=== PATIENT | male | born 1945 | race Caucasian/White ===

== ENCOUNTER → 2016-07-20 | Outpatient (CLI) | payer MEDICARE, OTHER ==
[~2016-07-20] VITALS: Ht 175.3 cm; Wt 72.7 kg
[~2016-07-20] MED LIST: ACET-2321 PO; ASPI-1115 PO; CIPR-280 PO; CYCL-375 PO; DOCU-168 PO; LEVO100T4 PO; MELO15TA12 PO; NORMAL SALINE 1,000 ML IV ONE; OXYC-544 PO
[2016-07-20 11:48] VITALS: Ht 175.3 cm; Wt 72.7 kg
[2016-07-20 12:00] LABS: BASOPHILS % (AUTO) 0.3 % (0-2); HCT - HEMATOCRIT 43.7 % (41-53); HGB - HEMOGLOBIN 15.1 GM/DL (13.5-17.5); LYMPHOCYTES # (AUTO) 0.8 T/MM3 (1-4.8); LYMPHOCYTES % (AUTO) 21.7 % (23-45); MEAN CORPUSCULAR HGB 30.6 UUG (26-34); MEAN CORPUSCULAR HGB CONC(MCHC 34.6 GM/DL (31-37); MEAN CORPUSCULAR VOLUME 88.5 UM3 (80-100); MEAN PLATELET VOLUME 11.4 UM3 (9.4-12.4); MONOCYTES # (AUTO) 0.3 T/MM3 (0-0.8); MONOCYTES % (AUTO) 8.3 % (0-9.0); NEUTROPHILS #(AUTO)-ABSOLUTE 2.4 T/MM3 (1.8-7.7); NEUTROPHILS % (AUTO) 69.7 % (33-66); RED BLOOD COUNT 4.94 M/MM3 (4.50-5.90); WBC - WHITE BLOOD COUNT 3.5 T/MM3 (4.5-11.0)
[2016-07-20 12:11] LABS: ALBUMIN 4.4 G/DL (3.5-5.0); ALBUMIN/GLOBULIN RATIO 1.2 RATIO (1.1-2.2); ALKALINE PHOSPHATASE 90 U/L (38-126); ALT (SGPT) 47 U/L (21-72); ANION GAP 15 MEQ/L (5-15); AST (SGOT) 56 U/L (17-59); BUN/CREATININE RATIO 25 RATIO (6-26); CALCIUM 9.5 MG/DL (8.4-10.2); CHLORIDE 102 MEQ/L (98-107); CO2 - CARBON DIOXIDE 23 MEQ/L (22-30); CREATININE 1.2 MG/DL (0.8-1.5); GLOMERULAR FILTRATION RATE 60; GLUCOSE 121 MG/DL (75-110); POTASSIUM 3.8 MEQ/L (3.6-5); SODIUM 140 MEQ/L (134-144); TOTAL PROTEIN 8.2 G/DL (6.3-8.2)
[2016-07-20 12:15] VITALS: BP 137/74; PULSE 86; RESP 20; TEMP 98.4; O2SAT 98
== END ==
LOC: LAB 11:22
PROVIDERS: ATTEND Nurse Practitioner
DX: E86.0 Dehydration (principal); R19.7 Diarrhea, unspecified; R53.83 Other fatigue; R63.0 Anorexia
CPT/HCPCS: 80053; 85025; 87507; J7030

== ENCOUNTER 2016-10-22 06:54 | Inpatient (IN) ==
[~2016-10-22 06:54] MED LIST changes: -ACET-2321 PO; +ACETAMINOPHEN 500 MG TABLET PO ONE; -ASPI-1115 PO; -CIPR-280 PO; -CYCL-375 PO; +DEXAMETHASONE 4 MG/ML INJECTION IVP ONE; -DOCU-168 PO; +FAMOTIDINE PB 20 MG/50 ML BAG IV ONE; -LEVO100T4 PO; +LIDOCAINE 1% (10mg/ml) 10mL MDV SQ ONE; -MELO15TA12 PO; +MELOXICAM 15 MG TABLET PO ONE; +METOCLOPRAMIDE 10mg/2ml INJECTION IVP ONE; -NORMAL SALINE 1,000 ML IV ONE; +NOZIN NASAL SWAB NAS ONE; +ONDANSETRON 4 MG/2 ML INJECTION IVP ONE; -OXYC-544 PO; +SALINE FLUSH 10ml SYRINGE IVF PRN
[2016-10-22] MEDS ORDERED: METOCLOPRAMIDE 10mg/2ml INJECTION IVP ONE (07:00)
--- NOTE | 2016-10-22 07:15 | History & Physical Update ---
- History and Physical Update Date: 10/22/16 Update: I evaluated this patient and found no changes in the history and clinical exam findings. The treatment plan and recommendations are also unchanged from the previous documentation.
[2016-10-22 07:16] VITALS: BMI 24.1
[2016-10-22] MEDS: LR 1,000 ML IV SCH ×2 (07:54→09:15)
[2016-10-22] MEDS ORDERED: LIDOCAINE 1% (10mg/ml) 2mL INJ PF SDV ID ONE (07:56)
[2016-10-22] MEDS ORDERED: VANCOMYCIN 1,000 MG INJECTION ONE (08:34)
[2016-10-22] MEDS: CEFAZOLIN 1 G INJECTION IVP ONE (08:42)
[2016-10-22] MEDS ORDERED: PROPOFOL 60 ML ONE (08:46)
[2016-10-22] MEDS ORDERED: MIDAZOLAM 2mg/2ml INJECTION ONE (08:47)
[2016-10-22] MEDS: TRANEXAMIC ACID 1,000 MG in NS 100 ML IV ONE ×2 (09:00→10:21)
[2016-10-22] MEDS ORDERED: PROPOFOL 20 ML ONE ×2 (09:39→10:12)
--- NOTE | 2016-10-22 09:48 | Anesthesia Preoperative Report ---
Anesthesia Preoperative Record - Date and Time Date: 10/22/16 Preoperative Diagnosis: M17.11 Rt TKA Proposed Procedure: right total knee arthroplasty Allergies/Adverse Reactions: Allergies Allergy/AdvReac Type Severity Reaction Status Date / Time venom-honey bee Allergy Unknown HIVES Verified 10/22/16 07:53 - Vital Signs Vital Signs: Temperature 98.4 F 10/22/16 07:14 Pulse Rate 62 10/22/16 07:37 Respiratory Rate 13 10/22/16 07:14 Blood Pressure 126/67 10/22/16 07:14 Pulse Oximetry 95 10/22/16 07:14 Oxygen Delivery Method Room Air Height and Weight: Height 5 ft 8.5 in Weight 73.2 kg Body Mass Index 24.1 - Medications Inpatient Medications: Current Medications Epinephrine HCl 0.25 mg/Bupivacaine HCl 30 ml/Morphine Sulfate 15 mg/Ketorolac Tromethamine 60 mg/Sodium Chloride 65.25 mls @ 1 mls/hr OPSITE INTRAOP ONE PRN Reason: Protocol Stop: 10/25/16 01:14 Lactated Ringer's (Lactated Ringers) 1,000 mls @ 50 mls/hr IV .Q20H GEETHA Last Admin: 10/22/16 09:15 Dose: 50 mls/hr Sodium Chloride (Iv Flush) 10 - 80 ml IVF PRN PRN PRN Reason: [place] Home Medications: Home Medications Medication Instructions Recorded Confirmed Type Levothyroxine Sodium [Synthroid] 1 tab PO ACB #0 tab 06/29/14 10/22/16 History Acetaminophen [Tylenol] 650 mg PO QID PRN 09/17/16 10/22/16 History Is Patient on Beta Marion?: No - Medical History Respiratory: DENIES: Asthma, Sleep Apnea Cardiovascular: DENIES: Angina, Coronary Artery Disease, Hypertension Gastrointestional: DENIES: Gastroesophageal Reflux Disease Renal/Endocrine: Reports: Diabetes Mellitus Type 2 (diet controlled- no meds), Thyroid Disease (controlled with meds) Other History: DENIES: Anesthesia Reactions - Surgical History HEENT Surgeries: Reports: Tonsillectomy, Other (wisdom teeth) GI Surgery/Treatments: Reports: Hernia Repair (age 3), Colonoscopy Musculoskeletal Surgery/Tx: Reports: Total Knee Replacement (Lt TKA 2014) Anesthesia Reactions: None Hx Family Anesthesia Reaction: No History of Motion Sickness: No - Social History Smoking Status: Never smoker Hx Chewing Tobacco Use: No Second Hand Exposure: No Substance Use Type: does not use - Pertinent Findings Laboratory: CBC and BMP 10/22/16 07:24 BMP 10/22/16 07:24 Sodium 143 Potassium 4.1 Chloride 107 Carbon Dioxide 26 BUN 18.0 Creatinine 0.8 Glucose 99 Calcium 9.8 EKG Rhythm: Normal Sinus Rhythm - Physical Exam Respiratory Exam: Present: lungs clear Cardiovascular Exam: Present: regular rate and rhythm - Airway Assessment Mallampati Score: II TMD: 3 Fingerbreadths Neck Extension: good Overall Assessment: no airway concerns - ASA ASA Score: 2 - Plan Anesthesia: General TIVA Regional/Trunk Block: Spinal - Discussion Discussion: Discussed risks/options/alternatives of anesthesia and questions answered. Patient consents. Nursing pain assessment noted. Present for Discussion: spouse, family member Attestation Statement: Prior to the delivery of any anesthetic medication, I examined the patient, developed the plan, obtained the patient's consent and discussed the risk and benefits of the procedure with the patient/guardian. - Additional Information Seen by Anesthesia: Yes
[2016-10-22] MEDS ORDERED: EPHEDRINE 50mg/ml INJECTION ONE (09:54)
[2016-10-22] MEDS ORDERED: SALINE FLUSH 10ml SYRINGE ONE (09:54)
[2016-10-22] MEDS: EPINEPHrine 0.25 MG, BUPIVACAINE 0.25% PF 30 ML, MORPHINE SULFATE 15 MG, KETOROLAC INJ ... OPSITE ONE (10:05)
[2016-10-22] MEDS ORDERED: ROPIVACAINE 0.5% (5mg/ml) 30ml INJ ONE (10:10)
--- NOTE | 2016-10-22 10:14 | Operative Note ---
- Procedure Date of Admission: 10/22/16 Side: right Preoperative Diagnosis: knee primary DJD Postoperative Diagnosis: Same as preoperative diagnosis. Operation: total knee arthroplasty Surgeon: Gege Hernandez MD [employer] Counter Assistant: Marco Antonio Wood Complications: None. Regional/Trunk Block: Spinal Peripheral Nerve Block: Saphenous-Right Estimated Blood Loss: See Anesthesia Record. Fluids: Please see Anesthesia Record. Description of Procedure: Mr. Brown and the right knee were identified and marked in the preoperative holding area. He was brought back to the operating suite and placed supine on the operating table. Spinal anesthetic was administered. The operative lower extremity was prepped and draped in a sterile fashion. Timeout was performed. He had a fixed varus deformity. An anterior midline incision followed by medial parapatellar arthrotomy was performed. The tourniquet was not used until cementing. Hemostasis was obtained with electrocautery. The patella was resurfaced to a size 35. A distal femoral osteotomy was then performed in 5 of valgus using intramedullary guide. The femur was sized at a 5 and rotation set using the epicondylar axis. Distal femoral cuts were performed with a 4-in-1 cutting block. A proximal tibial cut was then made perpendicular to its long axis using an extramedullary guide. A large medial release was performed. At this point remaining meniscus and osteophytes were removed and joint cocktail was injected throughout soft tissue. Trial components were placed with a 9 mm spacer. This allowed for full extension and flexion and the patella tracked well. The leg was then exsanguinated and the tourniquet inflated to 250 mmHg. The tibia was then stamped at a size 5 at the proper rotation. The bone was then prepared for cementing and [place] [employer] components were cemented into place and allowed to cure in extension. The tourniquet was then let down and hemostasis obtained with electrocautery. Betadine solution was used during the curing period for 3 minutes. 1 g of vancomycin powder was placed into the joint before the capsulotomy was repaired with #1 Vicryl. I then left my transport assistant close the subcutaneous tissue and skin with 2-0 Vicryl and Monocryl. Dermabond was used on the skin. The drapes were then removed and she was taken to recovery room under the care of anesthesia.
--- NOTE | 2016-10-22 11:47 | XRay Report ---
Indication: post op PROCEDURE: XR knee RT 2V: Encounter: Initial Comparison: September 16, 2016 Findings: Postoperative changes of right total knee replacement are seen. There is expected postoperative subcutaneous gas. No evidence of hardware failure or acute fracture. No retained radiopaque surgical instruments or sponges. Overlying material causing artifact. Impression: New right total knee prosthesis without evidence of immediate complication. .
[2016-10-22] MEDS ORDERED: NAPROXEN 220 MG TABLET PO PRN (11:50)
[2016-10-22] MEDS ORDERED: DiphenhydrAMINE 25 MG CAPSULE PO PRN (11:50)
[2016-10-22] MEDS ORDERED: DiphenhydrAMINE 50 MG/ML INJECTION IVP PRN (11:50)
[2016-10-22] MEDS ORDERED: LORazepam 1 MG TABLET PO PRN (11:50)
[2016-10-22] MEDS ORDERED: NOZIN NASAL SWAB NAS ONE (11:50)
[2016-10-22] MEDS ORDERED: ONDANSETRON 4 MG/2 ML INJECTION IVP PRN (11:50)
[2016-10-22] MEDS: NS 1,000 ML IV SCH (11:59)
--- NOTE | 2016-10-22 12:05 | Anesthesia Postoperative Note ---
- Date and Time Date: 10/22/16 Time: 11:27 - Status Patient Participated in Evaluation: Patient Participated in Person Vital Signs: Temperature 97 F 10/22/16 11:25 Pulse Rate 68 10/22/16 11:45 Respiratory Rate 16 10/22/16 11:30 Blood Pressure 110/63 10/22/16 11:45 Pulse Oximetry 97 10/22/16 11:45 Oxygen Delivery Method Room Air Respiratory Function: Airway Patent Cardiovascular Function: Regular Pulse EKG Rhythm: Normal Sinus Rhythm Mental Status: Alert and Oriented Pain Intensity: 0 Hydration: IV Infusing Complications During Recover: None Apparent - Follow-Up Instructions Instructions: Per Surgeon
--- NOTE | 2016-10-22 12:11 | Anesthesia Procedure Note ---
Peripheral Nerve Blockade - Procedure Physician: Julio Cesar Hernandez MD Date: 10/22/16 Surgical Procedure: right TKA Discussion: Discussed risks/options/alternatives of anesthesia and questions answered. Patient consents. Nursing pain assessment noted. Block Start: 10:48 Block Stop: 10:52 Blocked Employed: Adductor Canal Indication: Post-Operative Pain Approach: Right Side Confirmed Position: Supine Patient: Consent, Risks/Benefits Discussed, Informed, Post Block Act. Discussed IV Sedation: No (spinal still in effect) Sedation: Sedate w/Meaningful Contact Initial Vital Signs: Pulse Rate 63 10/12/16 11:15 Respiratory Rate 14 10/12/16 11:15 Blood Pressure 93/53 10/12/16 11:15 Pulse Oximetry 95 10/12/16 11:15 Post Vital Signs: Temperature 97 F 10/22/16 11:25 Pulse Rate 68 10/22/16 11:45 Respiratory Rate 16 10/22/16 11:30 Blood Pressure 110/63 10/22/16 11:45 Pulse Oximetry 97 10/22/16 11:45 Oxygen Delivery Method Room Air Initial Pain Pain Score: 0 Post Block Pain Score: 0 Prep: Chlorhexadine/ETOH, Sterile Technique Ultrasound Used?: Yes - Nerve Simulator Paresthesia/Pain: None - Injectate Ropivacaine (%): 0.5 Ropivacaine (mL): 25 Was Epi 1:200,000 Used?: No Injection: Injection made incrementally with constant monitoring and aspiration every 5 ml
[2016-10-22] MEDS: Oxycodone *IR* 5 MG TABLET PO PRN (14:37)
[2016-10-22] MEDS: ACETAMINOPHEN 325 MG TABLET PO SCH ×3 (14:40→20:43)
[2016-10-22] MEDS: NOZIN NASAL SWAB NAS SCH ×2 (14:40→21:28)
[2016-10-22] MEDS: CEFAZOLIN 2 G in NS 100 ML IV SCH (16:46)
[2016-10-22] MEDS ORDERED: PNEUMOCOCCAL 13 VACCINE 0.5ml INJECTION IM ONE (19:15)
[2016-10-22] MEDS: ASPIRIN *EC* 325 MG TABLET PO SCH (20:43)
[2016-10-22] MEDS: DOCUSATE SODIUM 100 MG CAPSULE PO SCH (20:43)
[2016-10-22] MEDS ORDERED: SENNOSIDES 8.6 MG TABLET PO SCH (22:00)
[2016-10-23] MEDS: Oxycodone *IR* 5 MG TABLET PO PRN (00:17)
[2016-10-23] MEDS: CEFAZOLIN 2 G in NS 100 ML IV SCH (00:17)
[2016-10-23] MEDS: NS 1,000 ML IV SCH (02:08)
[2016-10-23] MEDS ORDERED: LEVOTHYROXINE 100 MCG TABLET PO SCH (06:30)
[2016-10-23] MEDS: NOZIN NASAL SWAB NAS SCH (06:32)
[2016-10-23] MEDS: CEFAZOLIN 1 G INJECTION IVP ONE (07:13)
[2016-10-23] MEDS: TRANEXAMIC ACID 1,000 MG in NS 100 ML IV ONE ×2 (07:13)
[2016-10-23] MEDS: EPINEPHrine 0.25 MG, BUPIVACAINE 0.25% PF 30 ML, MORPHINE SULFATE 15 MG, KETOROLAC INJ ... OPSITE ONE (07:14)
[2016-10-23] MEDS: DOCUSATE SODIUM 100 MG CAPSULE PO SCH (08:10)
[2016-10-23] MEDS: ACETAMINOPHEN 325 MG TABLET PO SCH ×2 (08:10→12:39)
[2016-10-23] MEDS: ASPIRIN *EC* 325 MG TABLET PO SCH (08:10)
--- NOTE | 2016-10-23 08:42 | Orthopedic Progress Note ---
Date: Subjective/Severity of Illness: Konrad is doing very well. Tolerated activity without problems. No breathing or CV complaints. Expects discharge later today. Orthopedic Objective PO Vital signs: Temperature 97.8 F 10/23/16 03:29 Pulse Rate 80 10/23/16 03:29 Respiratory Rate 16 10/23/16 03:29 Blood Pressure 117/65 10/23/16 03:29 Pulse Oximetry 93 10/23/16 03:29 Oxygen Delivery Method Room Air Height and Weight: Height 5 ft 8.5 in Weight 169 lb 1.513 oz Body Mass Index 24.1 - Constitutional General Appearance: Present: alert, no acute distress - Respiratory Exam Present: non-labored - Extremities Exam Extremities: Present: pulses intact. Absent: calf tenderness - Surgical Site Incision: Mepilex dressing intact, no drainage - Neurological Exam Present: no deficits - Psychiatric Exam Present: alert, normal affect - Labs Result Diagrams: 10/23/16 04:04 10/23/16 04:04 Abnormal lab results 10/23/16 10/23/16 Range/Units 04:04 04:04 RBC 3.61 L (4.50-5.90) M/MM3 Hgb 10.9 L (13.5-17.5) GM/DL Hct 32.6 L (41-53) % Plt Count 125 L (130-400) T/MM3 Glucose 120 H (75-110) MG/DL H & H 10/23/16 Range/Units 04:04 Hgb 10.9 L (13.5-17.5) GM/DL Hct 32.6 L (41-53) % Orthopedic Assessment and Plan (1) Primary osteoarthritis of right knee Status: Chronic Assessment and Plan: Asprin protocol for VTE prophylaxis x 6 weeks and SCDs in the hospital. PT/OT services to improve independent function. Expect discharge later today. Discharge Planning per Case Management. Hospital Course Summary Disclaimer: The visit summary below is not to be considered part of the above Progress Note.
[2016-10-23] MEDS ORDERED: POLYETHYL GLYCOL 3350 17gm PACKET PO SCH (09:00)
[2016-10-23] MEDS ORDERED: SENNOSIDES 8.6 MG TABLET PO PRN (10:36)
[2016-10-23 12:17] VITALS: BP 133/71; RESP 13; TEMP 97.4
--- NOTE | 2016-10-23 12:44 | Discharge Summary ---
Orthopedic Discharge Info Date of admission: 10/22/16 06:54 Primary care physician: Simón Andersen MD Attending Physician: Julio Cesar Hernandez MD Consults: 10/22/16 07:00 Consult to Anesthesiology [CONS] Routine Consulting Provider: CAIN Ross Reason For Exam: Preoperative Assessment 10/22/16 11:50 Case Management Consult [CONS] Routine Reason For Exam: Discharge Planning DME-Walker [CONS] Routine Height: 5 ft 8.5 in Weight: 161 lb 6.054 oz Comment: change dressing in 2 weeks Total Joint Outpatient Therapy [CONS] Routine Comment: change dressing in 2 weeks - Discharge Diagnosis (1) Primary osteoarthritis of right knee Status: Chronic - Procedures Procedures: Procedures Right Total knee replacement (08/02/14) - Laboratory Result Diagrams: 10/23/16 04:04 10/23/16 04:04 Laboratory: Abnormal lab results 10/23/16 10/23/16 Range/Units 04:04 04:04 RBC 3.61 L (4.50-5.90) M/MM3 Hgb 10.9 L (13.5-17.5) GM/DL Hct 32.6 L (41-53) % Plt Count 125 L (130-400) T/MM3 Glucose 120 H (75-110) MG/DL H & H 10/23/16 Range/Units 04:04 Hgb 10.9 L (13.5-17.5) GM/DL Hct 32.6 L (41-53) % Orthopedic Discharge HPI - HPI Comments This patient was admitted for elective surgical tx of end stage degenerative joint disease that failed to respond to conservative treatment. Further details of this is found in the admission H&P. Orthopedic Hospital Course Hospital course: 10/23/16 12:41 After appropriate preoperative clearance and signing of operative consent, the patient was given IV antibiotics, according to orthopedic protocol. The patient was taken to the operating room and underwent elective joint arthroplasty. Following surgery, antibiotics were discontinued less than 24 hours according to joint protocol. Appropriate anticoagulants were initiated and SCDs added for DVT prevention. The dressing was clean, dry, and intact. Pain control was obtained via multimodal approach. Bowel motivation addressed with scheduled and PRN medications. Early mobilization was initiated through PT services. Discharge arrangements made by a collaborative effort between the patient and Case Management. Follow-up is scheduled in 2-3 weeks. Discharge instructions given by orthopedic providers and nursing staff at discharge. Discharge condition was good. Ongoing care required?: No - Postoperative Anemia patient received IVF, labs monitored daily, no intervention required, HGB drop- acceptable Discharge Plan - Med Rec/Dispo Referrals/Follow Up: Julio Cesar Hernandez MD [Physician] - 11/13/16 2:30 pm [email or web address] Instructions: [facility] Postop Instructions Additional Instructions: [facility] ON 10/24/2016 AT 2:40PM FOR PHYSICAL THERAPY EVAL. PHONE [phone] Prescriptions: New Acetaminophen [Tylenol] 650 mg PO QID #100 tablet Aspirin *EC* [Ecotrin] 325 mg PO BID #84 tablet Naproxen [Aleve] 440 mg PO BID PRN #84 tablet PRN Reason: Pain PEG 3350 17gm PACKET [Miralax] 17 gm PO DAILY #30 packet Oxycodone *Ir* [Roxicodone *Ir*] 5 - 15 mg PO Q3H PRN #60 tablet PRN Reason: Breakthrough Pain Continue Levothyroxine Sodium [Synthroid] 1 tab PO ACB #0 tab Discontinued Acetaminophen [Tylenol] 650 mg PO QID PRN PRN Reason: Pain - Disposition 01 Discharged Home, Self-Care
[2016-10-23 17:24] VITALS: PULSE 81; O2SAT 97
[2016-10-24] MEDS ORDERED: BISACODYL 10 MG SUPPOSITORY RECTALLY SCH (20:00)
== END 2016-10-23 13:55 | disposition home or self-care (01) | DRG 470 ==
LOC: SRG 06:54
PROVIDERS: ADMIT Orthopaedic Surgery; ATTEND Orthopaedic Surgery